=== PATIENT | male | born 1985 | race Caucasian/White ===

== ENCOUNTER 2021-02-28 12:41 | Emergency (ER) | payer OTHER, SELFPAY ==
[2021-02-28 12:44] VITALS: BP 142/92; PULSE 79; RESP 18; TEMP 36.3; O2SAT 99; BMI 33.9
--- NOTE | 2021-02-28 12:54 | EX.ED.DYSGE1 ---
HPI History of Present Illness Chief Complaint: Cellulitis Narrative Narrative: 35-year-old male presenting with left forearm swelling and mild erythema. Patient states he was stung by a bee on the forearm a couple of days ago. He denies fever, chills, nausea, vomiting. He states that the swelling in erythema have been persistent but have not increased dramatically. Patient has been using Benadryl and Pepcid at home. PFSH PFS Home Medications cephalexin 500 mg PO Q6 #40 capsule 02/28/21 [Rx Last Taken Unknown] Allergy/AdvReac Type Severity Reaction Status Date / Time No Known Allergies Allergy Verified 02/28/21 12:42 Social History Smoking Status: Never smoker ROS ROS ED Constitutional Constitutional ED: Denies chills or fever(s) Eyes Eyes: Denies blurry vision or diplopia ENT ENT ED: Denies rhinorrhea or sore throat Cardiovascular Cardiovascular: Denies chest pain, palpitations or racing heartbeat Respiratory/Chest Respiratory/Chest: Denies cough, dyspnea or sputum Gastrointestinal Gastrointestinal: Denies abdominal pain, nausea or vomiting Genitourinary Genitourinary ED: Denies dysuria or hematuria Musculoskeletal Musculoskeletal: Denies back pain, myalgias or neck pain Integumentary Reports other Details: Erythema and swelling to the left volar forearm. Neurologic Neurologic: Denies headache(s) or paresthesias EXAM Physical Exam Const Vital Signs: 02/28/21 12:44 Temperature 97.4 F L Temperature Source Temporal Pulse Rate 79 Respiratory Rate 18 Blood Pressure 142/92 H Blood Pressure Mean 108 Pulse Ox 99 Oxygen Delivery Method Room Air Positive well nourished General Appearance ED: NAD HEENT trauma and tenderness Eyes PERRL and EOMs intact bilaterally Extremity Extremity Narrative: Mild edema and erythema to the left volar forearm. There does not appear to be cellulitic change. Left radial pulse 2+. Left hand and forearm neurovascular intact with brisk cap refill to all 5 fingers. Neuro oriented x3, CN's II-XII intact bilaterally and no sensory deficits noted Sensorium / Orientation: alert Motor Exam: strength 5/5 throughout Psych mental status grossly normal Skin Skin Narrative: As described above MDM MDM MDM Narrative Medical decision making narrative: Patient's forearm does not appear to have cellulitic changes. This is likely localized allergic reaction. Patient counseled to use compression, ice, elevation. He should continue his Benadryl and Pepcid as needed. I will give him a [id number] prescription for Keflex that he can start if there are any cellulitic changes. Patient discharged in stable condition. Impression: 1. Localized reaction to bee sting Discharge Plan Triage Chief Complaint: Cellulitis ED Provider: Speedy Garcia Dx/Rx/DC Orders Instructions: ED Allerg React Insect Local Ch Prescriptions: New cephalexin 500 mg capsule 500 mg PO Q6 Qty: 40 RF: 0 Primary Care Provider: Mario Varghese Referrals: Mario Varghese MD [Primary Care Provider] - Disposition Disposition: Home, Self Care
== END 2021-02-28 13:09 | disposition home or self-care (01) ==
LOC: ED 13:08
PROVIDERS: Emergency Provider Student in an Organized Health Care Education/Training Program; PCP Surgery Vascular Surgery
DX: T63.441A Toxic effect of venom of bees, accidental (unintentional), initial encounter (principal); Y92.9 Unspecified place or not applicable
CPT/HCPCS: 99282